=== PATIENT | male | born 1945 | race Caucasian/White ===

== ENCOUNTER 2020-01-01 08:19 | Outpatient (CLI) | payer OTHER, SELFPAY ==
--- NOTE | 2020-01-01 08:48 | CT_ITS ---
WS: [id number] CT ABDOMEN AND PELVIS WITH CONTRAST HISTORY: UNSPECIFIED ABDOMINAL PAIN TECHNIQUE: Imaging performed of the abdomen and pelvis with IV contrast. Single phase imaging of the abdomen. Coronal and sagittal reformats are submitted. All CT scans at [facility] use at least one of these dose optimization techniques: automated exposure control; mA and/or kV adjustment per patient size (includes targeted exams where dose is matched to clinical indication); or iterativ e reconstruction. IV CONTRAST: Omnipaque 300; 95 mL IV. Oral contrast: Yes. DLP: 1133.48 mGycm COMPARISON: 04/11/2019 Lower thorax: Small 2 to 3 mm nodules are noted at the lung bases. Some of these have been present on prior studies and others are new. Extensive emphysematous changes at the lung bases. Mild enlargemen t of the LEFT heart chambers. No hiatal hernia. Liver/biliary system: Normal size with no intrahepatic dilatation. Gallbladder: Mildly contracted gallbladder, no stones identified. Pancreas: Mild atrophy. No mass. Spleen: Normal. Adrenal glands: Normal. Right kidney: Normal. Left kidney: Normal. Aorta: Severe atherosclerosis and tortuosity of aorta. Heavy or calcifications extend into the common iliac arteries bilaterally. Tortuous and dilated RIGHT common and external iliac artery. There is ec ashley but no definite aneurysm. Lymphadenopathy: None. Free fluid: None. GI tract: No obstruction. Moderate constipation throughout the colon. Normal appendix. There are a fe w scattered diverticula in the distal colon without acute diverticulitis. There is marked thickening involving the cardia of the stomach. Similar since at least 2016. Abdominal wall: Unremarkable abdominal wall. No hernia. Pelvis: Well-distended urinary bladder. Marked enlargement and lobulation of the prostate gland. Pros au gland measures 7.5 x 4.7 x 5.0 cm. Bones: Severe degenerative lumbar scoliosis with convexity to the RIGHT. Asymmetric disc space narrow ing with large osteophytes. Multilevel central and foraminal stenosis throughout the lumbar spine. No fractures. Mild bilateral osteoarthritis involving the hips. CT/CT abdomen pelvis w con* [id number] IMPRESSION: 1. No acute abdominal or pelvic abnormalities are identified. 2. Sigmoid diverticulosis without acute diverticulitis and mild constipation. 3. Severe atherosclerosis aorta and common iliac arteries with tortuosity. 4. 2 to 3 mm nodules at the lung bases. Chest CT follow-up in 12 months to be considered. 5. Chronic emphysema. 6. Severe degenerative rotoscoliosis of the lumbar spine multilevel foraminal central stenosis. 7. Markedly enlarged prostate gland.
[2020-01-01] MEDS: iohexol 300 mg/mL 50 mL Btl PO (10:31)
[2020-01-01] MEDS: iohexol 300 mg/mL 100 mL Btl IV (10:34)
== END 2020-01-01 08:20 | disposition home or self-care (01) ==
PROVIDERS: PCP Internal Medicine; Visit Provider Internal Medicine
DX: K57.30 Diverticulosis of large intestine without perforation or abscess without bleeding (principal); K59.00 Constipation, unspecified; I70.0 Atherosclerosis of aorta; R91.8 Other nonspecific abnormal finding of lung field; J43.9 Emphysema, unspecified; N40.0 Benign prostatic hyperplasia without lower urinary tract symptoms
CPT/HCPCS: 74177; Q9967

== ENCOUNTER 2021-04-09 09:51 | Outpatient (CLI) | payer OTHER, SELFPAY ==
--- NOTE | 2021-04-09 10:01 | CT_ITS ---
WS: [id number] CT LUMBAR SPINE TECHNIQUE: Noncontrast CT of the lumbar spine with coronal and sagittal reformatted images. CLINICAL INFORMATION: LOW BACK PAIN W/RADICULOPATHY COMPARISON: None. DLP: 2245.[address] scans at [facility] use at least one of these dose optimization techniques: automat ed exposure control; mA and/or kV adjustment per patient size (includes targeted exams where dose is matched to clinical indication); or iterative reconstruction. FINDINGS: Lumbar scoliosis convex right. Advanced multilevel degenerative disc disease with disc space narrowin g. Moderate spondylitic changes. Anterior hypertrophic changes lumbar spine. Slight retrolisthesis L3 on L4 and L4 on L5. L1-L2: Disc desiccation with vacuum disc phenomenon. Mild right and no significant left foraminal olivia rowing. Spinal canal is patent. Moderate facet arthropathy. L2-L3: Disc desiccation with vacuum disc phenomenon. Moderate left and no significant right foraminal narrowing. Moderate facet arthropathy. Mild central canal stenosis. Narrowing of the left subarticul ar recess. L3-L4: Disc osteophyte complex with endplate ridging results in moderate to severe central canal sten osis with impingement traversing L4 nerve roots bilaterally. Moderate left and no significant right f oraminal narrowing. Moderate to advanced facet arthropathy. L4-L5: Disc osteophyte complex with endplate ridging. Moderate to severe central canal stenosis. Impi ngement on the subarticular recess and traversing right greater than left L5 nerve roots. Advanced fa cet arthropathy. Moderate right and mild left bony foraminal narrowing. L5-S1: Mild disc bulging and osteophytic ridging. Mild central canal stenosis. Impingement traversing S1 nerve roots bilaterally. Advanced facet arthropathy. Severe right and no significant left foramin al narrowing. Adrenal glands are normal. Normal caliber abdominal aorta. Vascular calcification. CT/CT lumbar spine wo con* [id number] IMPRESSION: 1. Advanced lumbar scoliosis convex right. Moderate spondylitic changes. 2. Moderate to severe L3-L4 and L4-L5 spinal canal narrowing due to slight ret rolisthesis with disc osteophyte complexes. 3. Moderate bony foraminal narrowing left L2-3, left L3-4, right L4-5 and mode rate to severe right L5-S1. 4. Multilevel moderate to advanced facet arthropathy described above.
== END 2021-04-09 09:52 | disposition home or self-care (01) ==
PROVIDERS: PCP Family Medicine; Visit Provider Family Medicine
DX: M54.5 Low back pain (principal); M54.16 Radiculopathy, lumbar region; M47.816 Spondylosis without myelopathy or radiculopathy, lumbar region; M48.061 Spinal stenosis, lumbar region without neurogenic claudication
CPT/HCPCS: 72131

== ENCOUNTER → 2022-03-08 07:57 | Outpatient (BNVA) | payer OTHER, SELFPAY | PROVIDERS: PCP Family Medicine; Visit Provider Otolaryngology | DX: Z71.1 Person with feared health complaint in whom no diagnosis is made (principal); M95.0 Acquired deformity of nose; J34.2 Deviated nasal septum; Z87.891 Personal history of nicotine dependence | CPT/HCPCS: 99202; 99203 ==

== ENCOUNTER 2022-04-02 07:52 | Outpatient (CLI) | payer OTHER, SELFPAY ==
--- NOTE | 2022-04-02 08:09 | FL_ITS ---
WS: [id number] Barium swallow and esophagram, 04/02/2022 Clinical Data: CHOKING EPISODES/DIFFICULTY SWALLOWING Comparison: None. Fluoroscopy time: 1min [id number] # of spot films: 7 Findings: The patient swallowed the thick and thin barium, and it flowed through the hypopharynx without hesita tion. No stricture, mass, polyp or erosion was seen. There was no aspiration or penetration but the t hick barium cleared slowly from the hypopharynx. Ingestion of the thin barium aided in its clearance. The barium entered the esophagus and there were tertiary contractions and poor motility the length of the esophagus. No hiatal hernia, reflux, stricture, polyp, mass, erosion or ulcer was noted. FL/FL barium swallow [id number] Impression: 1. Slow progression of thick barium through the hypopharynx but clearance occur red with the thin barium. 2. Tertiary contractions throughout the esophagus without reflux, mass, polyp, erosion or ulceration.
== END 2022-04-02 07:53 | disposition home or self-care (01) ==
PROVIDERS: PCP Family Medicine; Visit Provider Family Medicine
DX: R09.89 Other specified symptoms and signs involving the circulatory and respiratory systems (principal); R13.10 Dysphagia, unspecified
CPT/HCPCS: 74220

== ENCOUNTER 2022-12-09 10:17 | Emergency (ER) | payer OTHER, SELFPAY ==
[2022-12-09] VITALS (14 sets, daily range): BP systolic 123–153; BP diastolic 82–90; PULSE 64–109; RESP 14–21; TEMP 36.3; O2SAT 71–99; BMI 26.8
--- NOTE | 2022-12-09 11:02 | ECG_ITS ---
[facility] Test Date: 2022-12-09 Pat Name: Edgar Sebastian Department: Room: Gender: Male Doctor Of Dental Surgery: : 1945 Requested By: Leonor Torrez Order Number: [id number] Gallardo MD: Chayo Bowling M.D. Measurements Intervals [place] Rate: 66 P: 0 IN: 0 QRS: 63 QRSD: 86 T: 68 QT: 400 QTc: 421 Interpretive Statements ATRIAL FIBRILLATION MINIMAL ST DEPRESSION [0.025+ mV ST DEPRESSION] ABNORMAL RHYTHM ECG No previous ECG available for comparison Electronically Signed On 12-09-2022 20:42:07 [employer] by Chayo Bowling M.D. [id number]
--- NOTE | 2022-12-09 11:28 | XRR_ITS ---
PROCEDURE INFORMATION: Exam: XR Chest Exam date and time: 12/09/2022 11:34 AM Age: 77 years old Clinical indication: Condition or disease; Other: Afib TECHNIQUE: Imaging protocol: Radiologic exam of the chest. Views: 1 view. COMPARISON: CT abdomen pelvis w con* [id number] 01/01/2020 10:30 AM FINDINGS: Lungs: See Pleural spaces finding. Pleural spaces: There are findings concerning for a small pneumothorax in the left upper lobe that may be artifactual related to a skin fold but needs follow-up for clarification. There are scattered chronic granulomatous calcifications in both lung jorgensen. There are no infiltrates. No overt CHF. The Heart/Mediastinum: Unremarkable. No cardiomegaly. Bones/joints: There are degenerative changes right shoulder joint and thoracic spine otherwise osseous structures are unremarkable. XR/XR chest 1V portable [id number] IMPRESSION: Findings inconclusive for left upper lobe pneumothorax. Recommend repeat chest exam with repositioning of left chest electrodes for clarification.
--- NOTE | 2022-12-09 11:29 | ED_ITS ---
HPI - General Adult General: Chief complaint: General Medical Stated complaint: DC called for him to be seen Time Seen by Provider: 12/09/22 11:15 Source: patient and old records reviewed Mode of arrival: ambulatory Limitations: no limitations History of Present Illness: Patient reports he went to the [place] clinic today for evaluation of of routine PSA check and blood sugar check that he does every 6 months. States he had no complaints. Denied any history of chest pain or shortness of breath. He states he is not noticed any palpitations or arrhythmia. States that he had an EKG done in the clinic that showed atrial fibrillation rate controlled. Patient was sent here for evaluation of atrial fibrillation. he had an EKG done in the clinic that showed atrial fibrillation rate controlled. Patient was sent here for evaluation of atrial fibrillation. Patient states he is not on any blood thinners but does take aspirin. States he takes an excessive amount of aspirin he takes nine 325 mg aspirins a day for back pain. Denies any peripheral edema. Denies any abdominal pain. Denies any chest pain. Denies any recent fall or chest trauma. Denies any previous history of pneumothorax. Onset (ago): unknown Pain Consistency: other (No pain) Associated symptoms: Deny chest pain, dyspnea, headache(s), nausea, rash, palpitations, syncope or vomiting Review of Systems Const: Denies: fever(s) or chills Eyes: Denies: change in vision ENMT: Denies: throat pain Card: Denies: chest pain, palpitations, irregular heart rhythm, edema, swelling of feet/ankles, lightheadedness, syncope, pre-syncope, dyspnea on exertion or orthopnea Resp: Denies: dyspnea or wheezing GI: Denies: abdominal pain, nausea or vomiting : Denies: flank pain Musc: Denies: neck pain or back pain Skin/Breast: Denies: rash or pruritus Neuro: Denies: headache(s) or numbness in extremities Psych: Denies: anxiety Grzegorz/Lymph: Denies: enlarged lymph nodes PFSH ED PFSH: Medical History Allergic rhinitis 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 Elevated prostate specific antigen [PSA] Low back pain, unspecified Other dysphagia Pain in throat Primary osteoarthritis, right shoulder Repeated falls Surgical History History of surgery on lower extremity Social History Smoking and tobacco status: former smoker (1 pack a day for 25 yrs) Physical Exam Const: COMMON NORMALS: no acute distress, patient oriented x3, no limitations and well nourished GENERAL APPEARANCE: cooperative HENMT: COMMON NORMALS: normocephalic and atraumatic HEAD & SCALP: normocephalic and atraumatic FACE & SINUS: normal facial exam Eye: COMMON NORMALS: EOMs intact bilaterally Neck/C-Spine: COMMON NORMALS: full ROM, no lymphadenopathy, supple and no meningeal signs GENERAL: Yes normal visual inspection Lymph: LYMPHATIC: no lymphadenopathy noted Chest: COMMONS NORMALS: normal inspection of the chest and normal palpation of entire chest wall CHEST: No Ecchymosis present and No rash Resp: COMMON NORMALS: normal respiratory effort, No retractions and clear to auscultation bilaterally EFFORT & INSPECTION: No respiratory distress AUSCULTATION: clear to auscultation bilaterally Cardio: COMMON NORMALS: regular rate and Peripheral pulses 2+ throughout JUGULAR VENOUS DISTENTION: no JVD RATE: regular rate RHYTHM: abnormal rhythm irregularly irregular PERIPHERAL PULSES: Peripheral pulses 2+ throughout OTHER: Normal rate. GI: COMMON NORMALS: Normal to inspection, nondistended, normoactive bowel sounds present and non-tender : COMMON NORMALS: Yes no CVA tenderness BLADDER/KIDNEY EXAM: Yes no CVA tenderness Back/Pelvis: COMMON NORMALS: no CVA tenderness Extremity: COMMON NORMALS: normal to inspection, full ROM and capillary refill normal Neuro: COMMON NORMALS: patient oriented x3, CN's II-XII intact bilaterally, no focal motor deficits and no sensory deficits noted MENINGEAL SIGNS: Yes no meningeal signs Psych: COMMON NORMALS: mental status grossly normal and Normal thought process present THOUGHT PROCESS: Normal thought process present Skin: COMMON NORMALS: no rashes or lesions noted and no wounds GENERAL SKIN EXAM: no rashes or lesions noted Course Vital Signs: Vital signs: Vital Signs Temperature 97.3 F L 12/09/22 10:23 Pulse Rate 72 12/09/22 14:30 Respiratory Rate 20 H 12/09/22 14:30 Blood Pressure 130/90 12/09/22 14:30 Pulse Oximetry 75 L 12/09/22 14:30 Oxygen Delivery Me thod 12/09/22 11:46 MDM - General Adult Medical Decision Making New onset atrial fibrillation but time of onset is unknown. Patient never noticed irregular heartbeat. Patient states he does have a history of occasional vertigo and does fall occasionally due to being off balance. 1248: Radiologist called and said there is a possibility patient may have a small pneumothorax on the left but may also be a skinfold. Patient had a T- shirt on and was laying approximately 45 degrees when chest x-ray was done. Therefore, will repeat chest x-ray to rule out pneumothorax. Patient has no symptoms of pneumothorax at this time. He has no shortness of breath or crepitus to the chest. 1530: Discussed case with clerical administrator Dr. Rodriguez. She recommends no changes in medications. She does recommend outpatient echocardiogram. Due to patient's problem with balance and high risk for falls, will not place patient on anticoag ulant other than aspirin. I have also educated patient on taking aspirin only once or twice a day. Lab Data 12/09/22 11:45 12/09/22 11:45 Radiology Impressions Chest X-Ray 12/09/22 12:49 IMPRESSION: Persistent abnormality left upper lung zone that remains inconclusive for pneumothorax. CT chest recommended for clarification. ADDENDUM: 12/09/22 0177 THIS REPORT CONTAINS FINDINGS THAT MAY BE CRITICAL TO PATIENT CARE. The findings were verbally communicated via telephone conference with Jae Salomon at 2:34 PM ART DEPARTMENT HEAD on 12/09/2022. The findings were discussed and I was informed by Dr. Salomon that the patient was followed up with a CT examination of the chest which confirmed that there is no pneumothorax. Chest CT 12/09/22 13:02 IMPRESSION: 1. No evidence of pneumothorax. 2. No acute pulmonary infiltrates. 3. Moderate chronic emphysematous changes. Laboratory Results WBC 8.4 10^3/uL (4.0-10.0) 12/09/22 11:45 RBC 5.66 10^6/uL (4.1-5.3) H 12/09/22 11:45 Hgb 15.4 g/dL (11.7-16.6) 12/09/22 11:45 Hct 49.2 % (42.0-52.0) 12/09/22 11:45 MCV 86.9 fl (80-94) 12/09/22 11:45 MCH 27.2 pg (28.0-34.0) L 12/09/22 11:45 MCHC 31.3 g/dL (30.0-36.0) 12/09/22 11:45 RDW 14.9 % (12.1-15.1) 12/09/22 11:45 Plt Count 235 10^3/cmm (130-400) 12/09/22 11:45 MPV 10.2 fL (7.4-10.4) 12/09/22 11:45 Neut % (Auto) 69.4 % 12/09/22 11:45 Lymph % (Auto) 20.6 % 12/09/22 11:45 [place] % (Auto) 7.0 % 12/09/22 11:45 Eos % (Auto) 1.9 % 12/09/22 11:45 Baso % (Auto) 0.7 % 12/09/22 11:45 Neut # (Auto) 5.86 10^3/uL (1.8-7.7) 12/09/22 11:45 Lymph # (Auto) 1.7 10^3/uL (0.8-4.8) 12/09/22 11:45 [place] # (Auto) 0.6 10^3/uL (0.2-0.9) 12/09/22 11:45 Eos # (Auto) 0.2 10^3/uL (0.0-0.8) 12/09/22 11:45 Baso # (Auto) 0.1 10^3/uL (0.0-0.1) 12/09/22 11:45 Nucleated RBC % (auto) 0 % 12/09/22 11:45 Nucleated RBCs # 0.0 /100WBC 12/09/22 11:45 APTT 27.4 SECONDS (23.9-36.7) 12/09/22 11:45 Sodium 135 mmol/L (136-145) L 12/09/22 11:45 Potassium 3.8 mmol/L (3.5-5.1) 12/09/22 11:45 Chloride 97 mmol/L (98-107) L 12/09/22 11:45 Carbon Dioxide 28 mmol/L (22-29) 12/09/22 11:45 Anion Gap 13.8 (5-19) 12/09/22 11:45 BUN 9 mg/dL (8-23) 12/09/22 11:45 Creatinine 0.8 mg/dL (0.7-1.2) 12/09/22 11:45 GFR Calculation Not Reportable 12/09/22 11:45 Glucose 100 mg/dL (65-115) 12/09/22 11:45 Calculated Osmolality 279 mOsm/kg (285-295) L 12/09/22 11:45 Calcium 10.3 mg/dL (8.5-10.5) 12/09/22 11:45 Magnesium 1.9 mg/dL (1.7-2.3) 12/09/22 11:45 Troponin T Baseline 28 ng/L (0-15) H 12/09/22 11:45 Troponin T 120 Minute 27.63 ng/L (0-15) H 12/09/22 14:12 Delta Troponin T -0.37 ABS# (0-10) L 12/09/22 14:12 TSH 1.86 uIU/mL (0.27-4.20) 12/09/22 11:45 Salicylates 3.8 mg/dL (3-10) 12/09/22 11:45 Imaging Data CXR: I personally reviewed and interpreted this imaging study as follows: My impression: Chest x-ray shows nothing acute. No masses, infiltrates, or effusions. Radiologist's impression: PROCEDURE INFORMATION: Exam: XR Chest Exam date and time: 12/09/2022 11:34 AM Age: 77 years old Clinical indication: Condition or disease; Other: Afib TECHNIQUE: Imaging protocol: Radiologic exam of the chest. Views: 1 view. COMPARISON: CT abdomen pelvis w con* [id number] 01/01/2020 10:30 AM FINDINGS: Lungs: See Pleural spaces finding. Pleural spaces: There are findings concerning for a? small pneumothorax in the left upper lobe that may be artifactual related to a skin fold but needs follow-up for clarification. There are scattered chronic granulomatous calcifications in both lung jorgensen. There are no infiltrates. No overt CHF.? The Heart/Mediastinum: Unremarkable. No cardiomegaly. Bones/joints: There are degenerative changes right shoulder joint and thoracic spine otherwise osseous structures are unremarkable. XR/XR chest 1V portable [id number] IMPRESSION: Findings inconclusive for left upper lobe pneumothorax. Recommend repeat chest exam with repositioning of left chest electrodes for clarification. ? Dictated By: Doron Rivera MD Signed By: Doron Rivera MD Signed Date/Time: 12/09/[address] Chest: Radiologist's impression: Ordering Provider/Ordering MD: Jae Salomon MD Date of Service: 12/09/22 Procedure(s): CT chest w con* [id number] Accession Number(s): [id number] Report Number: [id number] WS: [id number] CT CHEST TECHNIQUE: Contrast enhanced CT of the chest with coronal and sagittal reformatted images. CLINICAL INFORMATION: abnormal chest xray; possible pneumothorax on left COMPARISON: Radiograph earlier today DLP: 1652.[address] scans at [facility] use at least one of these dose optimization techniques: automated exposure control; mA and/or kV adjustment per patient size (includes targeted exams where dose is matched to clinical indication); or iterative reconstruction. FINDINGS: No evidence of pneumothorax. Moderate chronic emphysematous changes. No acute pulmonary infiltrates. Slight bibasilar atelectasis. Normal caliber thoracic aorta. Mild aortic calcification. Coronary calcification. Calcified hilar and anterior mediastinal lymph nodes. Small RIGHT thyroid nodule. No axillary lymphadenopathy. Adrenal glands are normal. Fatty atrophy of the pancreas. Splenic artery calcification. Mild thoracic kyphosis. CT/CT chest w con* [id number] IMPRESSION: ? 1.? No evidence of pneumothorax. 2.? No acute pulmonary infiltrates. 3.? Moderate chronic emphysematous changes. ? Dictated By: Bienvenido Benitez MD Signed By: Bienvenido Benitez MD Signed Date/Time: 12/09/22 1413 DD/ 1405 EKG Data EKG 1: I personally reviewed and interpreted this EKG as follows: EKG interpretation date: 12/09/22 EKG interpretation time: 11:30 Interpretation: EKG from [facility] that was done at 9:30 AM today showed atrial fibrillation with a rate of 66. Normal axis. Normal ST segments. No P waves seen. Normal T waves. Normal QRS. Computer generated interpretation: Chest X-Ray 12/09/22 12:49 IMPRESSION: Persistent abnormality left upper lung zone that remains inconclusive for pneumothorax. CT chest recommended for clarification. ADDENDUM: 12/09/221436 THIS REPORT CONTAINS FINDINGS THAT MAY BE CRITICAL TO PATIENT CARE. The findings were verbally communicated via telephone conference with Jae Salomon at 2:34 PM ART DEPARTMENT HEAD on 12/09/2022. The findings were discussed and I was informed by Dr. Salomon that the patient was followed up with a CT examination of the chest which confirmed that there is no pneumothorax. Chest CT 12/09/22 13:02 IMPRESSION: 1. No evidence of pneumothorax. 2. No acute pulmonary infiltrates. 3. Moderate chronic emphysematous changes. EKG 2: I personally reviewed and interpreted this EKG as follows: EKG interpretation date: 12/09/22 EKG interpretation time: 11:03 Prior EKG tracings: available for review Interpretation: Unchanged from previous EKG at [facility] clinic. Patient with rate controlled atrial fibrillation heart rate 66. Normal ST segments. Normal QRS. Normal T waves. Normal axis. Unchanged from previous EKG. Atrial fibrillation with rate control. Computer generated interpretation: Chest X-Ray 12/09/22 12:49 IMPRESSION: Persistent abnormality left upper lung zone that remains inconclusive for pneumothorax. CT chest recommended for clarification. ADDENDUM: 12/09/221436 THIS REPORT CONTAINS FINDINGS THAT MAY BE CRITICAL TO PATIENT CARE. The findings were verbally communicated via telephone conference with Jae Salomon at 2:34 PM ART DEPARTMENT HEAD on 12/09/2022. The findings were discussed and I was informed by Dr. Salomon that the patient was followed up with a CT examination of the chest which confirmed that there is no pneumothorax. Chest CT 12/09/22 13:02 IMPRESSION: 1. No evidence of pneumothorax. 2. No acute pulmonary infiltrates. 3. Moderate chronic emphysematous changes. EKG 3: I personally reviewed and interpreted this EKG as follows: EKG interpretation date: 12/09/22 EKG interpretation time: 14:17 Prior EKG tracings: available for review Interpretation: No change from previous EKG. EKG shows atrial fibrillation rate controlled with heart rate 63. Normal axis. Normal QT interval. Normal ST segment. Normal QRS. Atrial fibrillation rate controlled. Computer generated interpretation: Chest X-Ray 12/09/22 12:49 IMPRESSION: Persistent abnormality left upper lung zone that remains inconclusive for pneumothorax. CT chest recommended for clarification. ADDENDUM: 12/09/22 5167 THIS REPORT CONTAINS FINDINGS THAT MAY BE CRITICAL TO PATIENT CARE. The findings were verbally communicated via telephone conference with Jae Salomon at 2:34 PM ART DEPARTMENT HEAD on 12/09/2022. The findings were discussed and I was informed by Dr. Salomon that the patient was followed up with a CT examination of the chest which confirmed that there is no pneumothorax. Chest CT 12/09/22 13:02 IMPRESSION: 1. No evidence of pneumothorax. 2. No acute pulmonary infiltrates. 3. Moderate chronic emphysematous changes. Discharge Plan Discharge Patient Disposition: Home Clinical Impression: Atrial fibrillation, new onset Condition: Stable Prescriptions: No Action aspirin 325 mg tablet,delayed release (DR/EC) 975 mg PO TID ferrous sulfate 325 mg (65 mg iron) tablet,delayed release (DR/EC) 325 mg PO .EVERY 3 DAYS hydralazine 25 mg tablet 25 mg PO BID hydrochlorothiazide 25 mg tablet 25 mg PO QAM omeprazole 20 mg capsule,delayed release(DR/EC) 20 mg PO QAM simvastatin 40 mg tablet 40 mg PO EVERY OTHER DAY fluticasone propionate [Flonase Allergy Relief] 50 mcg/actuation spra y,suspension 1 spray intranasal BEDTIME Rx Instructions: administer into each nostril lisinopril 20 mg tablet 20 mg PO EVERY OTHER DAY atenolol 25 mg Tablet 25 mg PO DAILY guaifenesin 100 mg/5 mL Liquid 200 mg PO QID PRN (Reason: THIN MUCUS) hydrocortisone 1 % Cream 1 applic TOPICAL TID PRN (Reason: Rash) Drinks Ashes Made From Wood See Rx Instructions .ROUTE .COMPLEX Rx Instructions: LARSEN WOOD AND THEN TAKES ONE TABLESPOONFUL OF ASHES & MIXES IN WATER & DRINKS ONCE A DAY Discharge Orders: Discharge ED (Routine); Ordered 12/09/22 Ordered By: Jae Salomon Referrals: Syeda Ocampo MD [Primary Care Provider] - 1-3 days Nisa Fermin MD [Physician] - 4-7 days (for recheck of afib) Discharge Diet: Cardiac and Low Salt Discharge Activity: Increase activity as tolerated Patient Instructions: A-fib (Atrial Fibrillation) (ED) Activity Restrictions/Additional Instructions: You likely will be scheduled for outpatient echocardiogram/ultrasound of your heart on Tuesday. Hospital should call you with an appointment time. Follow-up with your [place] family doctor for referral to clerical administrator for follow-up. Take aspirin 325 mg 1 tablet once or twice a day for pain. Do not take aspirin more than prescribed amount. If unable to follow-up with DC clerical administrator, follow-up with Dr. Fermin. Continue remainder of home meds as directed. Coding Level of Care Code ED Assistant Women'S Basketball Coach for Chg Fwd History Comprehensive Exam Comprehensive Medical Decision Making Moderate Complexity
[2022-12-09 12:01] LABS: Basophils # 0.1 10^3/uL (0.0-0.1); Basophils % 0.7 %; Eosinophils # 0.2 10^3/uL (0.0-0.8); Eosinophils % 1.9 %; Hematocrit 49.2 % (42.0-52.0); Hemoglobin 15.4 g/dL (11.7-16.6); Lymphocytes # 1.7 10^3/uL (0.8-4.8); Lymphocytes % 20.6 %; Mean Corpuscular HGB Conc 31.3 g/dL (30.0-36.0); Mean Corpuscular Hemoglobin 27.2 pg (28.0-34.0); Mean Corpuscular Volume 86.9 fl (80-94); Mean Platelet Volume 10.2 fL (7.4-10.4); Monocytes # 0.6 10^3/uL (0.2-0.9); Neutrophils # 5.86 10^3/uL (1.8-7.7); Neutrophils % 69.4 %; Nucleated Red Blood Cells % 0 %; Platelet Count 235 10^3/cmm (130-400); Red Blood Count 5.66 10^6/uL (4.1-5.3); Red Cell Distribution Width 14.9 % (12.1-15.1); White Blood Count 8.4 10^3/uL (4.0-10.0)
[2022-12-09 12:07] LABS: Slide Review Slide Review Perform
[2022-12-09 12:15] LABS: Partial Thromboplastin Time 27.4 SECONDS (23.9-36.7)
[2022-12-09 12:40] LABS: Troponin(5th) Baseline 28 ng/L (0-15)
[2022-12-09 12:48] LABS: Anion Gap 13.8 (5-19); Blood Urea Nitrogen 9 mg/dL (8-23); Calcium 10.3 mg/dL (8.5-10.5); Carbon Dioxide 28 mmol/L (22-29); Chloride 97 mmol/L (98-107); Glucose 100 mg/dL (65-115); Magnesium 1.9 mg/dL (1.7-2.3); Osmolality Calculated 279 mOsm/kg (285-295); Potassium 3.8 mmol/L (3.5-5.1); Salicylate 3.8 mg/dL (3-10); Sodium 135 mmol/L (136-145); Thyroid Stimulating Hormone 1.86 uIU/mL (0.27-4.20)
--- NOTE | 2022-12-09 12:49 | XRR_ITS ---
PROCEDURE INFORMATION: Exam: XR Chest Exam date and time: 12/09/2022 12:55 PM Age: 77 years old Clinical indication: Abnormal findings; Abnormal radiologic exam of lung or chest; Additional info: Possible pneumothorax on original film TECHNIQUE: Imaging protocol: Radiologic exam of the chest. Views: 1 view. COMPARISON: CR XR chest 1V portable [id number] 12/09/2022 11:34 AM FINDINGS: Lungs: See Pleural spaces finding. Pleural spaces: There is a persistent crescent-shaped density projecting peripherally over the left upper lung zone that is slightly more pronounced on the current study and again raises possibility of a pneumothorax. However I suspect this is agaom due to a skin fold simulating a pneumothorax but is persistence requires further imaging for clarification. A CT chest recommended for clarification. Remaining lung jorgensen are unchanged with scattered chronic granulomatous calcifications again noted. Heart/Mediastinum: Unremarkable. No cardiomegaly. Bones/joints: Unremarkable for age. XR/XR chest 1V portable [id number] IMPRESSION: Persistent abnormality left upper lung zone that remains inconclusive for pneumothorax. CT chest recommended for clarification.
--- NOTE | 2022-12-09 13:02 | CT_ITS ---
WS: [id number] CT CHEST TECHNIQUE: Contrast enhanced CT of the chest with coronal and sagittal reformatted images. CLINICAL INFORMATION: abnormal chest xray; possible pneumothorax on left COMPARISON: Radiograph earlier today DLP: 1652.[address] scans at [facility] use at least one of these dose optimization techniques: automated e xposure control; mA and/or kV adjustment per patient size (includes targeted exams where dose is matc hed to clinical indication); or iterative reconstruction. FINDINGS: No evidence of pneumothorax. Moderate chronic emphysematous changes. No acute pulmonary infiltrates. Slight bibasilar atelectasis. Normal caliber thoracic aorta. Mild aortic calcification. Coronary calc ification. Calcified hilar and anterior mediastinal lymph nodes. Small RIGHT thyroid nodule. No axillary lymphadenopathy. Adrenal glands are normal. Fatty atrophy of the pancreas. Splenic artery calcification. Mild thoracic kyphosis. CT/CT chest w con* [id number] IMPRESSION: 1. No evidence of pneumothorax. 2. No acute pulmonary infiltrates. 3. Moderate chronic emphysematous changes.
[2022-12-09] MEDS: iohexol 350 mg/mL 500 mL Btl (per mL) IV (13:16)
--- NOTE | 2022-12-09 14:15 | ECG_ITS ---
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 Measurements Intervals [place] Rate: 63 P: 0 KS: 0 QRS: 36 QRSD: 85 T: 63 QT: 431 QTc: 444 Interpretive Statements ATRIAL FIBRILLATION ABNORMAL RHYTHM ECG Compared to ECG 12/09/2022 11:02:42 ST (T wave) deviation no longer present Electronically Signed On 12-09-2022 20:49:27 CENTRAL STERILE TECHNICIAN by Chayo Bowling M.D. [email or web address] Private [id number]
[2022-12-09 15:09] LABS: Troponin 5 2HR 27.63 ng/L (0-15)
[2022-12-09 15:12] LABS: Troponin 5 2HR Delta -0.37 ABS# (0-10)
== END 2022-12-09 16:09 | disposition home or self-care (01) ==
PROVIDERS: Emergency Provider Family Medicine; PCP Family Medicine
DX: I48.91 Unspecified atrial fibrillation (principal); Z79.82 Long term (current) use of aspirin; I25.10 Atherosclerotic heart disease of native coronary artery without angina pectoris; Z87.891 Personal history of nicotine dependence
CPT/HCPCS: 36415; 71045; 71260; 80048; 80307; 83735; 84443; 84484; 85025; 85730; 93005; 99285; Q9967

== ENCOUNTER → 2023-06-27 07:42 | Outpatient (BNVA) | payer OTHER, SELFPAY | PROVIDERS: PCP Family Medicine; Visit Provider Podiatrist Foot & Ankle Surgery | DX: Q82.8 Other specified congenital malformations of skin (principal); M20.41 Other hammer toe(s) (acquired), right foot; M20.42 Other hammer toe(s) (acquired), left foot; M21.622 Bunionette of left foot | CPT/HCPCS: 17110; 99204 ==

== ENCOUNTER → 2023-08-24 07:22 | Outpatient (BNVA) | payer OTHER, SELFPAY | PROVIDERS: PCP Family Medicine; Visit Provider Podiatrist Foot & Ankle Surgery | DX: Q82.8 Other specified congenital malformations of skin (principal); M20.41 Other hammer toe(s) (acquired), right foot; M20.42 Other hammer toe(s) (acquired), left foot; M21.622 Bunionette of left foot | CPT/HCPCS: 99213 ==

== ENCOUNTER 2024-02-13 07:26 | Outpatient (CLI) | payer OTHER, SELFPAY ==
--- NOTE | 2024-02-13 07:45 | US_ITS ---
WS: [id number] Limited abdomen ultrasound. HISTORY: Evaluate for abdominal wall hernia. Patient directs along the midline abdominal wall. COMPARISON: Chest CT 12/09/2022. Along the area of concern as directed by the patient no abdominal wall hernia is identified. No peris talsing loops of GI tract beyond the linea alba. IMPRESSION: No ventral abdominal wall hernia.
== END 2024-02-13 07:27 | disposition home or self-care (01) ==
LOC: RAD 07:27
PROVIDERS: PCP Family Medicine; Visit Provider Nurse Practitioner
DX: Z01.89 Encounter for other specified special examinations (principal)
CPT/HCPCS: 76705

== ENCOUNTER → 2024-02-22 07:27 | Outpatient (BNVA) | payer OTHER, SELFPAY | PROVIDERS: PCP Family Medicine; Visit Provider Podiatrist Foot & Ankle Surgery | DX: Q82.8 Other specified congenital malformations of skin (principal); M20.41 Other hammer toe(s) (acquired), right foot; M20.42 Other hammer toe(s) (acquired), left foot; M21.622 Bunionette of left foot | CPT/HCPCS: 17110 ==